=== PATIENT | male | born 1985 | race American Indian/Alaskan Native ===

== ENCOUNTER 2017-09-16 07:11 | Emergency (ER) | payer BC ==
[2017-09-16 07:58] VITALS: BP 131/86
--- NOTE | 2017-09-16 11:49 | Emergency Department Report ---
HPI - General Chief Complaint: Dental/Oral Time Seen by Provider: 09/16/17 10:29 - HPI HPI: 1-year-old male presents to ED complaining of teeth pain timeline is 2-3 days. Patient states that he had a deep cleaning about a week and a half ago that has been dental clinic. Patient states since then he's had some sensitivity and pain to his teeth. Patient states that hurts worse when he eats. Patient states he went back to the clinic and did nothing for him. This incident past couple of days and is not getting better and wanted to come and get a second opinion. He denies fevers/chills/nausea/vomiting/abdominal pain/throat pain/ swelling or bleeding in the gums ED Past Medical Hx - Past Medical History Previous Medical History?: No - Surgical History Past Surgical History?: No - Social History Smoking Status: Current Every Day Smoker Substance Use Type: None - Medications Home Medications: Home Medications Medication Instructions Recorded Confirmed Last Taken Type Ibuprofen [Motrin] 800 mg PO Q8HR PRN #30 tablet 09/16/17 Unknown Rx ED Review of Systems ROS: Stated complaint: TOOTHACHE,MOUTH PAIN Other details as noted in HPI Constitutional: denies: chills, fever Eyes: denies: eye pain, eye discharge, vision change ENT: dental pain. denies: ear pain, throat pain Respiratory: denies: cough, shortness of breath, wheezing Cardiovascular: denies: chest pain, palpitations Endocrine: no symptoms reported Gastrointestinal: denies: abdominal pain, nausea, diarrhea Genitourinary: denies: urgency, dysuria Musculoskeletal: denies: back pain, joint swelling, arthralgia Skin: denies: rash, lesions Neurological: denies: headache, weakness, paresthesias Psychiatric: denies: anxiety, depression Hematological/Lymphatic: denies: easy bleeding, easy bruising Physical Exam - Physical Exam Vital Signs: Vital Signs 09/16/17 07:54 Temperature 98.7 F Pulse Rate 74 Respiratory 18 Rate Blood Pressure 131/86 O2 Sat by Pulse 99 Oximetry Physical Exam: GENERAL: Alert and oriented x3, no apparent distress, Normal Gait, atraumatic. HEAD: Head is normocephalic and a-traumatic. NOSE: Nose symetrical, Nontender,Nares appeared normal. MOUTH:Mouth is well hydrated and without lesions. Tonsils nonerythematous or swollen, Uvula midline, Tongue not elevated. Mucous membranes are moist. Posterior pharynx clear, no exudate or lesions. Patent airways. Mild tenderness to palpation of upper and lower gums. Teeth are intact. No swelling , no pus discharge NECK: Supple. Non edematous, No carotid bruits. No lymphadenopathy or thyromegaly. No C-spine tenderness LUNGS: Symetrical with respiration, No wheezing, no rales or crackles, CTAB. HEART: S1, S2 present, regular rate and rhythm without murmur, no rubs, no gallops. Non tender to palpation SKIN: Warm and dry, No lesions, No ulceration or induration present. ED Course Vital Signs 09/16/17 07:54 Temperature 98.7 F Pulse Rate 74 Respiratory 18 Rate Blood Pressure 131/86 O2 Sat by Pulse 99 Oximetry ED Medical Decision Making - Medical Decision Making 31-year-old male presents with tooth sensitivity and pain ED course: I discussed the patient follow-up with dentist or go and 6 and noted dental opinion. I discussed the patient after dictating tooth sensitivity and pain can last anywhere from 2-4 weeks. I discussed the patient's symptoms worsen he follow up with orthopedics in 3-5 days Discussed the patient go home on anti-inflammatories for pain control. Vital signs are normal patient is in no acute distress. Critical care attestation.: If time is entered above; I have spent that time in minutes in the direct care of this critically ill patient, excluding procedure time. ED Disposition Clinical Impression: Tooth sensitivity, Tooth pain with chewing Disposition: TO HOME OR SELFCARE Is pt being admited?: No Does the pt Need Aspirin: No Condition: Stable Instructions: Toothache (ED) Additional Instructions: Make sure to follow up with the primary care physician as discussed. Take all your medications as you've been prescribed. If you have any worsening symptoms or develop new symptoms please return to ED immediately. Prescriptions: Ibuprofen [Motrin] 800 mg PO Q8HR PRN #30 tablet PRN Reason: Pain Referrals: PRIMARY CARE,MD [Primary Care Provider] - 3-5 Days [facility] [Outside] - 3-5 Days [facility] [Outside] - 3-5 Days [facility] [Outside] - 3-5 Days Forms: Work/School Release Form(ED) Time of Disposition: 11:49
== END 2017-09-16 12:09 | disposition home or self-care (01) ==
LOC: ED 07:11
DX: K08.89 Other specified disorders of teeth and supporting structures (principal); F17.200 Nicotine dependence, unspecified, uncomplicated
CPT/HCPCS: 99282